=== PATIENT | female | born 1995 | race Caucasian/White ===

== ENCOUNTER 2022-03-25 12:56 | Day surgery (SDC) | payer OTHER, SELFPAY ==
[2022-03-24 08:22] VITALS: BMI 21.1
[2022-03-25] VITALS (7 sets, daily range): BP systolic 117–143; BP diastolic 77–88; PULSE 66–80; RESP 12–18; TEMP 36.2–37.2; O2SAT 100; BMI 21.1
[2022-03-25] MEDS: OXYMETAZOLINE NASAL SPRAY 15 ML 2 SPRAYS NASAL (13:33)
[2022-03-25] MEDS: LACTATED RINGERS 1,000 ML 84 ML IV (13:34)
[2022-03-25 13:41] LABS: COVID19 -Nasal RAPID Negative (Negative)
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
--- NOTE | 2022-03-25 14:39 | PM.PREOP ---
Pre-operative Note Interval Note History & Physical reviewed/Exam performed by Physician: Yes Changes to H&P: No
[2022-03-25] MEDS: LIDOCAINE 4% SOLN 50 ML 20 ML TOP (14:59)
--- NOTE | 2022-03-25 15:00 | SUR.OPER ---
Supine on padded OR bed, head on pillow, arms secured on padded arm boards at <90 degrees abduction, legs uncrossed, safety belt at thigh, tape over blanket over lower legs.
== END 2022-03-25 15:49 | disposition home or self-care (01) ==
PROVIDERS: PCP Nurse Practitioner Family; Referring Provider Otolaryngology; Visit Provider Otolaryngology
PROC: 0NSBXZZ Reposition Nasal Bone, External Approach (ICD-10-PCS; CPT 21337; principal; 2022-03-25 14:30)
DX: S02.2XXA Fracture of nasal bones, initial encounter for closed fracture (principal); J98.8 Other specified respiratory disorders; Z20.822 Contact with and (suspected) exposure to COVID-19; V00.321A Fall from snow-skis, initial encounter; Y93.23 Activity, snow (alpine) (downhill) skiing, snowboarding, sledding, tobogganing and snow tubing
CPT/HCPCS: 21337; 87635; C9803; A9270; J2704

== ENCOUNTER 2024-05-27 20:44 | Emergency (ER) | payer OTHER, SELFPAY ==
[2024-05-27 20:54] VITALS: PULSE 67; O2SAT 99
[2024-05-27 20:58] VITALS: BP 122/66; PULSE 70; RESP 16; TEMP 36.7; O2SAT 100; BMI 20.9
[2024-05-27 21:00] VITALS: PULSE 68; RESP 18; O2SAT 98
[2024-05-27 21:06] LABS: Bilirubin Urine UA NEGATIVE (NEGATIVE); Color Urine UA YELLOW; Glucose Urine UA NEGATIVE (Negative); Ketones Urine UA NEGATIVE (NEGATIVE); Leukocyte Esterase Urine UA 2+ (NEGATIVE); Nitrite Urine UA NEGATIVE (Negative); Occult Blood Urine UA 3+ (Negative); Protein Urine UA 2+ (Negative); Urobilinogen Urine UA 0.2 E.U./dL (0.2)
[2024-05-27 21:12] LABS: Appearance Urine UA Cloudy
[2024-05-27 21:16] LABS: Bacteria Urine Few (2-10); Culture Indicated Urine Specimen Cultured; RBC Urine 1-5/HPF (0-5/HPF); Squamous Epithelial Cell Urine 0-1 /HPF (0-5/HPF); Urine Volume 10mL (spun); WBC Urine >100/HPF (0-5/HPF)
--- NOTE | 2024-05-27 21:16 | ED.FEMALEGU ---
HPI - Female Genitourinary General Chief complaint: Urogenital-Female Stated complaint: poss UTI blood in urine Time Seen by Provider: 05/27/24 21:00 Source: patient Mode of arrival: Ambulatory History of Present Illness HPI Narrative: Patient is a 28-year-old female history of endometriosis recurrent UTI's presenting to day with painful frequent urination. She currently has an IUD she is followed by Urology. This is her 3rd or 4th UTI in the your 2024. Her urologist is at [facility]. She was diagnosed with interstitial cystitis however she has had E coli infections in the past. She currently has an IUD in for her endometriosis, got was recently changed. She is taking estradiol he is emptying bladder. He would overall extremely frustrated. These symptoms this time have been going on for last 2-3 days Related Data Home Medications Medication Instructions Recorded Confirmed levonorgestrel 17.5 mcg/24 hr (up See Rx Instructions .Route .COMPLEX 03/24/22 12/16/23 to 5 yrs) 19.5mg intrauterine device (Kyleena) Previous Rx's Medication Instructions Recorded phenazopyridine 100 mg tablet 100 mg PO TID PRN pain 6 doses #6 05/27/24 (Pyridium) tabs sulfamethoxazole 800 1 tab PO BID 14 days #28 tabs 05/27/24 mg-trimethoprim 160 mg tablet (Bactrim DS) Allergies Allergy/AdvReac Type Severity Reaction Status Date / Time No Known Drug Allergies Allergy Verified 12/16/23 13:41 Patient History Medical History (Updated 05/27/24 @ 21:22 by Emily Lux DO) Mild concussion (03/07/22) Hearing loss Nasal fracture (03/07/22) Surgical History (Updated 03/24/22 @ 08:28 by Vi Wilson RN) Hx of tonsillectomy Exam Initial Vital Signs Initial Vital Signs: Vital Signs Pulse Rate 67 05/27/24 20:54 Pulse Oximetry 99 05/27/24 20:54 GENERAL: Well-appearing, well-nourished and in no acute distress. CARDIOVASCULAR: peripheral pulses in tact, cap refill <2 sec RESPIRATORY: No respiratory distress, speaks in full sentences without difficulty ABDOMEN: Soft, minimal suprapubic pain, no guarding or rebound EXTREMITIES: Normal range of motion, no clubbing or edema. Neurovascularly intact NEUROLOGICAL: Cranial nerves II through XII grossly intact. Normal gait and speech. SKIN: Warm, dry, no petechiae, no rashes or lesions. Course Orders Ordered: ED Orders 05/27/24 20:50 Urinalysis and Microscopic Stat Urine Culture Stat Discontinued Medications Phenazopyridine HCl (Phenazopyridine 100 Mg Tablet) 200 mg PO NOW ONE Stop: 05/27/24 21:18 Last Admin: 05/27/24 21:31 Dose: 200 mg Documented By: KAI Trimethoprim/Sulfamethoxazole (Trimeth/Sulfa 160/800 (Ds) Tablet) 1 tab PO NOW ONE Stop: 05/27/24 21:18 Last Admin: 05/27/24 21:31 Dose: 1 tab Documented By: KAI Vital Signs Vital signs: Vital Signs - 8 hr 05/27/24 20:54 05/27/24 20:58 05/27/24 21:00 Temperature 98.1 F Pulse Rate 67 70 68 Respiratory Rate 16 18 Blood Pressure 122/66 Pulse Oximetry 99 100 98 Oxygen Delivery Method Room Air 05/27/24 21:35 Temperature Pulse Rate 78 Respiratory Rate 15 Blood Pressure 113/67 Pulse Oximetry 98 Oxygen Delivery Method Room Air MDM - Female Genitourinary Lab Data Labs: Lab Results 05/27/24 Range/Units 20:50 Urine Color Yellow Urine Appearance Cloudy Urine pH 7.0 (4.5-8.0) Ur Specific [place] 1.010 (1.000-1.035) Urine Protein 2+ H (Negative) Urine Glucose (UA) Negative (Negative) g/dL Urine Ketones Negative (NEGATIVE) Urine Occult Blood 3+ H (Negative) Urine Nitrate Negative (Negative) Urine Bilirubin Negative (NEGATIVE) Urine Urobilinogen 0.2 (0.2) E.U./dL Ur Leukocyte Esterase 2+ H (NEGATIVE) Urine RBC 1-5/hpf (0-5/HPF) Urine WBC >100/hpf H (0-5/HPF) Ur Squamous Epith Cells 0-1 /hpf (0-5/HPF) Urine Bacteria Few (2-10) H (None) Ur Culture Indicated? Specimen cultured Vol Urine Centrifuged 10ml (spun) Point of Care Testing Test Results Negative MDM Narrative Medical decision making narrative: Tearful 28-year-old female presenting today with UTI I like symptoms. She does have protein blood and bacteria in her urine. It was also cloudy. We will go ahead and treat her with Bactrim. I do not have record of prior cultures or urine. He reports that he was 1st put on Macrobid in March and then put Bactrim twice in April. He continues to message and stay in touch with her urologist. Vitals are stable no evidence of sepsis Urine negative Discharge Plan Departure Patient Disposition: Home Clinical Impression: Urinary tract infection Instructions: DI for Urinary Tract Infection (UTI) Activity Restrictions/Additional Instructions: *You have been diagnosed with UTI *What to do: *Continue to take medications as directed Bactrim 1 tablet twice a day 7 days Pyridium 200 mg 3 times a day only if having pain and burning *Follow up with your primary care provider in 2-3 days or call [phone] *Return to ER if you should have increasing pain nausea vomiting fever or any new, worsening or concerning symptoms Prescriptions: New sulfamethoxazole-trimethoprim [Bactrim DS] 800-160 mg tablet 1 tab PO BID 14 Days Qty: 28 0RF phenazopyridine [Pyridium] 100 mg tablet 100 mg PO TID PRN (Reason: pain) Qty: 6 0RF No Action Kyleena 17.5 mcg/24 hrs (5 yrs) 19.5 mg Intrauterine Device See Rx Instructions .ROUTE .COMPLEX Rx Instructions: 17.5 mcg intrauterinely every 5 years Referrals: Naman Cohn MD [Primary Care Provider] - Stand Alone Forms: Patient Portal/API/Survey
[2024-05-27] MEDS: PHENAZOPYRIDINE 100 MG TABLET 200 MG PO (21:31)
[2024-05-27] MEDS: TRIMETH/SULFA 160/800 (DS) TABLET 1 TAB PO (21:31)
[2024-05-27 21:35] VITALS: BP 113/67; PULSE 78; RESP 15; O2SAT 98
== END 2024-05-27 21:36 | disposition home or self-care (01) ==
PROVIDERS: Emergency Provider Emergency Medicine; PCP Family Medicine
DX: N39.0 Urinary tract infection, site not specified (principal); B96.20 Unspecified Escherichia coli [E. coli] as the cause of diseases classified elsewhere; Z16.29 Resistance to other single specified antibiotic
CPT/HCPCS: 81001; 81025; 87077; 87086; 87186; 99283